=== PATIENT | male | born 1990 | race African-American/Black ===

== ENCOUNTER 2018-11-07 22:46 | Emergency (ER) | payer SELFPAY ==
[~2018-11-07] VITALS: Ht 182.9 cm; Wt 77.1 kg
[2018-11-07 23:11] VITALS: BP 133/93
--- NOTE | 2018-11-07 23:12 | NUR ---
Pt. left his room in a disagreement with his significant other and walked out. Pt. left AMA prior to being seen by the ER physician.
== END 2018-11-07 23:13 | disposition left against medical advice (07) ==
LOC: ER 22:47
DX: M25.512 Pain in left shoulder (principal); E11.9 Type 2 diabetes mellitus without complications; F17.210 Nicotine dependence, cigarettes, uncomplicated; W10.8XXA Fall (on) (from) other stairs and steps, initial encounter; W22.09XA Striking against other stationary object, initial encounter
CPT/HCPCS: 99282

== ENCOUNTER 2018-12-22 20:06 | Emergency (ER) | payer SELFPAY ==
[~2018-12-22] VITALS: Ht 182.9 cm; Wt 77.1 kg
[~2018-12-22 20:06] MED LIST: HALOPERIDOL 5 MG/ML (HALDOL) AMP ONE; LORazepam INJ 2 MG/ML (ATIVAN) VIAL ONE; diphenhydrAMINE 50 MG/ML INJ (BENADRYL) ONE
[2018-12-22] MEDS ORDERED: diphenhydrAMINE 50 MG/ML INJ (BENADRYL) ONE (20:08)
[2018-12-22] MEDS ORDERED: LORazepam INJ 2 MG/ML (ATIVAN) VIAL ONE (20:15)
[2018-12-22 20:20] LABS: BASOPHILS # (AUTO) 0.1 10^3/uL (0.0-0.1); BASOPHILS % (AUTO) 1 % (0-10); EOSINOPHILS # (AUTO) 0.1 10^3/uL (0.0-0.3); EOSINOPHILS % (AUTO) 1 % (0-10); HEMATOCRIT 44 % (40-54); HEMOGLOBIN 15.2 G/DL (13.3-17.7); LYMPHOCYTES # (AUTO) 2.8 X 10^3 (1.0-4.0); LYMPHOCYTES % (AUTO) 38 % (12-44); MEAN CORPUSCULAR HEMOGLOBIN 30 PG (25-34); MEAN CORPUSCULAR HGB CONC 34 G/DL (32-36); MEAN CORPUSCULAR VOLUME 88 FL (80-99); MEAN PLATELET VOLUME 10.1 FL (7.4-10.4); MONOCYTES # (AUTO) 0.4 X 10^3 (0.0-1.0); MONOCYTES % (AUTO) 6 % (0-12); NEUTROPHILS # (AUTO) 4.1 X 10^3 (1.8-7.8); NEUTROPHILS % (AUTO) 55 % (42-75); PLATELET COUNT 280 10^3/uL (130-400); RED CELL DISTRIBUTION WIDTH 12.6 % (10.0-14.5); WHITE BLOOD COUNT 7.5 10^3/uL (4.3-11.0)
--- NOTE | 2018-12-22 20:26 | ED General ---
General Stated Complaint: OD/COMBATIVE Source of Information: Patient Exam Limitations: No Limitations History of Present Illness Date Seen by Provider: Dec 22, 2018 Time Seen by Provider: 20:23 Initial Comments To ER per EMS with reports of overdose. Patient reportedly had an argument with his girlfriend then told his girlfriend that he took 50 units of insulin. He states that he took 50 units of NovoLog R 30 minutes prior to arriving in the emergency room. He apparently implied to his girlfeined that he wanted to kill himself and so she summoned 911. Policed state that showed up and he stepped out of the house and made some reference to "shoot me" towards the police. He denies intent of self harm/suicidality upon arrival to ER. He was vomiting and combative during transport to the ER, police had been called to the scene and he was restrained to the EMS cot with handcuffs. States that he is a diabetic and he is from [place]. Timing/Duration: 1-2 Days Severity: Moderate Associated Systoms: Nausea/Vomiting Allergies and Home Medications Allergies Coded Allergies: No Known Drug Allergies (Unverified , 12/22/18) Patient Home Medication List Home Medication List Reviewed: Yes Review of Systems Review of Systems Constitutional: see HPI EENTM: see HPI Respiratory: no symptoms reported Cardiovascular: no symptoms reported Genitourinary: no symptoms reported Musculoskeletal: no symptoms reported Skin: no symptoms reported Psychiatric/Neurological: See HPI Hematologic/Lymphatic: No Symptoms Reported Immunological/Allergic: no symptoms reported Past Ckwrsoc-Rqmqwo-Cgmsgv Hx Patient Social History Type Used: Cigarettes Recent Foreign Travel: No Contact w/Someone Who Travel: No Recent Hopitalizations: No Seasonal Allergies Seasonal Allergies: No Past Medical History Surgeries: No Respiratory: No Cardiac: No Neurological: No Genitourinary: No Gastrointestinal: No Musculoskeletal: No Endocrine: Yes Diabetes, Insulin dep HEENT: No Cancer: No Psychosocial: No Integumentary: No Physical Exam Vital Signs Vital Signs - First Documented 12/22/18 20:06 Temp 97.7 Pulse 123 Resp 19 B/P (MAP) 122/81 (95) O2 Delivery Room Air Capillary Refill : Height, Weight, BMI Height: 6'0" Weight: 170lbs. oz. 77.695626ys; BMI Method:Stated General Appearance: No Apparent Distress, WD/WN, Thin, Other (belligerent on arrival, states that he does not want an IV, states "if you want an IV, I'm Fuckin' runnin and I dare yall to catch me". He's been vomiting since he got here. He is tachycardic at 130 ) Eyes: Bilateral Eye Normal Inspection, Bilateral Eye PERRL HEENT: PERRL/EOMI, TMs Normal Neck: Full Range of Motion, Normal Inspection Respiratory: No Accessory Muscle Use, No Respiratory Distress Cardiovascular: Normal Peripheral Pulses, Tachycardia Gastrointestinal: Normal Bowel Sounds, Non Tender, Soft Extremity: Normal Capillary Refill, Normal Inspection Neurologic/Psychiatric: Alert, Other Skin: Normal Color, Warm/Dry Progress/Results/Core Measures Suspected Sepsis SIRS Temperature: Pulse: Respiratory Rate: Laboratory Tests 12/22/18 20:10: White Blood Count 7.5 Blood Pressure / Mean: Laboratory Tests 12/22/18 20:10: Creatinine 1.59H, Platelet Count 280, Total Bilirubin 0.3 Results/Orders Lab Results Laboratory Tests Test 12/22/18 20:10 12/22/18 20:11 12/22/18 20:55 12/22/18 21:21 Range/Units White Blood Count 7.5 4.3-11.0 10^3/uL Red Blood Count 5.03 4.35-5.85 10^6/uL Hemoglobin 15.2 13.3-17.7 G/DL Hematocrit 44 40-54 % Mean Corpuscular Volume 88 80-99 FL Mean Corpuscular Hemoglobin 30 25-34 PG Mean Corpuscular Hemoglobin Concent 34 32-36 G/DL Red Cell Distribution Width 12.6 10.0-14.5 % Platelet Count 280 130-400 10^3/uL Mean Platelet Volume 10.1 7.4-10.4 FL Neutrophils (%) (Auto) 55 42-75 % Lymphocytes (%) (Auto) 38 12-44 % Monocytes (%) (Auto) 6 0-12 % Eosinophils (%) (Auto) 1 0-10 % Basophils (%) (Auto) 1 0-10 % Neutrophils # (Auto) 4.1 1.8-7.8 X 10^3 Lymphocytes # (Auto) 2.8 1.0-4.0 X 10^3 Monocytes # (Auto) 0.4 0.0-1.0 X 10^3 Eosinophils # (Auto) 0.1 0.0-0.3 10^3/uL Basophils # (Auto) 0.1 0.0-0.1 10^3/uL Sodium Level 142 135-145 MMOL/L Potassium Level 3.7 3.6-5.0 MMOL/L Chloride Level 100 98-107 MMOL/L Carbon Dioxide Level 13 L 21-32 MMOL/L Anion Gap 29 H 5-14 MMOL/L Blood Urea Nitrogen 18 7-18 MG/DL Creatinine 1.59 H 0.60-1.30 MG/DL Estimat Glomerular Filtration Rate > 60 BUN/Creatinine Ratio 11 Glucose Level 275 H 70-105 MG/DL Calcium Level 10.3 H 8.5-10.1 MG/DL Corrected Calcium 8.5-10.1 MG/DL Total Bilirubin 0.3 0.1-1.0 MG/DL Aspartate Amino Transf (AST/SGOT) 32 5-34 U/L Alanine Aminotransferase (ALT/SGPT) 22 0-55 U/L Alkaline Phosphatase 120 40-136 U/L Total Protein 8.0 6.4-8.2 GM/DL Albumin 4.7 H 3.2-4.5 GM/DL Lipase 14 8-78 U/L Salicylates Level < 5.0 L 5.0-20.0 MG/DL Acetaminophen Level < 10 L 10-30 UG/ML Serum Alcohol < 10 <10 MG/DL Glucometer 261 H 82 102 70-110 MG/DL My Orders Orders - SPENCER AREVALO APRN Haloperidol Injection (Haldol Injectio (12/22/18 20:30) Diphenhydramine Injection (Benadryl Inje (12/22/18 20:30) Lorazepam Injection (Ativan Injection) (12/22/18 20:30) Lorazepam Injection (Ativan Injection) (12/22/18 20:30) D5 Ns 1000 Ml Iv So... W/Potassium Chlor (12/22/18 21:15) D50w (Emergency) Syringe (Dextrose 50% 5 (12/22/18 21:08) D5 Ns W/Kcl 20 Meq/L (Dextrose 5%/0.9% S (12/22/18 21:08) Alcohol (12/22/18 21:16) Medications Given in ED Current Medications Medications Dose Ordered Sig/Clay Route Start Time Stop Time Status Last Admin Dose Admin Diphenhydramine HCl 25 mg ONCE ONCE IVP 12/22/18 20:30 12/22/18 20:31 DC 12/22/18 20:11 25 MG Haloperidol Lactate 2.5 mg ONCE ONCE IV 12/22/18 20:30 12/22/18 20:31 DC 12/22/18 20:11 2.5 MG Lorazepam 2 mg ONCE ONCE IVP 12/22/18 20:30 12/22/18 20:31 DC 12/22/18 20:11 2 MG Lorazepam 2 mg ONCE ONCE IVP 12/22/18 20:30 12/22/18 20:31 DC 12/22/18 20:22 2 MG Potassium Chloride/Dextrose/ Sod Cl 1,000 ml @ ud STK-MED ONCE IV 12/22/18 21:08 12/22/18 21:14 DC 12/22/18 21:30 150 MLS/HR Vital Signs/I&O 12/22/18 20:06 Temp 97.7 Pulse 123 Resp 19 B/P (MAP) 122/81 (95) O2 Delivery Room Air Capillary Refill : Departure Communication (Admissions) Family Conversation on arrival-Given his tachyardia. vomiting, and combative behavior and possibility of self harm attempt to evaluate labs. Her present, we will restrain him if necessary in order to give him some sedating medications. [id number]-patient's girlfriend Flor is here and states that he was never suicidal. She states that he got into an argument with her and he gets combative when his blood sugar gets low which is why he was behaving as such on the ambulance (despite his blood sugar in the 230 range). She states that they got into an argument, he called her to his room, told her that his blood sugar was low and then started at 150 ml hour. [id number]-patient's "baby mama" not to be confused with his girlfriend who is in the room is on speaker phone and advises him to "let me back threre or come out here ". Patient's girlfriend who is at the bedside left the room, the patient ripped off his cardiac monitors and removed his own IV and walked out to see his "baby mama" in the waiting room. Police were called back to the emergency room for the third time tonight in regards to this patient due to concerns for his safety. He is however alert and oriented recalls all events and insists that he was not trying to harm himself. Impression Primary Impression: Possible insulin overdose Additional Impression: Combative behavior Disposition: 07 AGAINST MEDICAL ADVICE Condition: Against Medical Advice Departure-Patient Inst. Decision time for Depature: 20:44 Referrals: NO,LOCAL PHYSICIAN (PCP/Family) Primary Care Physician SPENCER AREVALO APRN Dec 22, 2018 20:26
[2018-12-22] MEDS ORDERED: diphenhydrAMINE 50 MG/ML INJ (BENADRYL) IVP ONE (20:30)
[2018-12-22] MEDS ORDERED: LORazepam INJ 2 MG/ML (ATIVAN) VIAL IVP ONE ×2 (20:30)
[2018-12-22] MEDS ORDERED: HALOPERIDOL 5 MG/ML (HALDOL) AMP IV ONE (20:30)
[2018-12-22 20:52] LABS: ALANINE AMINOTRANSFERASE 22 U/L (0-55); ALBUMIN 4.7 GM/DL (3.2-4.5); ALKALINE PHOSPHATASE 120 U/L (40-136); BILIRUBIN,TOTAL 0.3 MG/DL (0.1-1.0); BUN/CREATININE RATIO 11; CALCIUM 10.3 MG/DL (8.5-10.1); CARBON DIOXIDE 13 MMOL/L (21-32); CHLORIDE 100 MMOL/L (98-107); CREATININE SERUM 1.59 MG/DL (0.60-1.30); GFR ESTIMATED > 60; GLUCOSE 275 MG/DL (70-105); LIPASE 14 U/L (8-78); POTASSIUM 3.7 MMOL/L (3.6-5.0); SALICYLATE < 5.0 MG/DL (5.0-20.0); SODIUM 142 MMOL/L (135-145)
[2018-12-22 20:57] LABS: ACETAMINOPHEN < 10 UG/ML (10-30)
[2018-12-22] MEDS ORDERED: DEXTROSE 50% 50 ML (IMS) SYR ONE (21:08)
[2018-12-22] MEDS ORDERED: D5 NS W/KCL 20 MEQ/L 1,000 ML IV ONE (21:08)
[2018-12-22] MEDS ORDERED: POTASSIUM CHLORIDE INJ 20 MEQ in D5 NS 1000 ML IV SOLUTION 1,000 ML IV SCH (21:15)
[2018-12-22 21:56] VITALS: BP 115/78
--- NOTE | 2018-12-22 21:56 | NUR ---
PT RIPPED OUT IV, TELEMETRY LEADS AND LEFT OUT FRONT WITH "BABY MOMMA" AFTER CURRENT GIRLFRIEND STORMED OUT OF ER. PT DID NOT SIGN AMA FORM. ASTER QUIÑONES HERE MULTIPLE TIMES R/T PT GUESTS BANGING ON WINDOWS AND DOORS IN WAITING ROOM. PT TOLD Curtis AREVALO APRN PRIOR TO THIS THAT HE WAS NOT SUICIDAL, ONLY "TOOK THE INSULIN TO GET MY SUGAR DOWN".
== END 2018-12-22 21:56 | disposition left against medical advice (07) ==
LOC: EDUNIT# 20:06 → ER 20:07
DX: R45.6 Violent behavior (principal); E11.9 Type 2 diabetes mellitus without complications; Z79.4 Long term (current) use of insulin
CPT/HCPCS: 36415; 80053; 80320; 80329; 82962; 83690; 85025; 93005; 93041